=== PATIENT | female | born 1970 | race American Indian/Alaskan Native ===

== ENCOUNTER 2019-05-05 19:13 | Emergency (ER) | payer OTHER ==
[2019-05-05] MEDS ORDERED: NACL 0.9% 1000 ML 1,000 ML IV ONE (19:15)
--- NOTE | 2019-05-05 19:19 | Emergency Department Report ---
ED Palpitations HPI - General Stated Complaint: RAPID HEARTBEAT Time Seen by Provider: 05/05/19 19:18 Source: patient Mode of arrival: Wheelchair Limitations: No Limitations - History of Present Illness Initial Comments: Patient is a 48-year-old female is emergency room with complaints of palpitations and lightheadedness. Patient states that she was working and became lightheaded and felt palpitations and checked her heart rate was 190. Patient is a nurse at this hospital. Patient denies chest pain shortness of breath. States her symptoms are better with rest and worse with exertion. MD Complaint: rapid heart beat, palpitations -: Sudden Context: occured during exertion Associated Symptoms: diaphoresis. denies: chest pain, shortness of breath, syncope, near-syncope, nausea/vomiting, anxiety, cough, parasthesias, feeling of impending doom, muscle cramps Treatments Prior to Arrival: vagal maneuvers - Related Data Allergies Allergy/AdvReac Type Severity Reaction Status Date / Time shellfish derived Allergy Shortness Verified 07/19/17 07:52 of Breath ED Review of Systems ROS: Stated complaint: RAPID HEARTBEAT Other details as noted in HPI Constitutional: denies: chills, fever Eyes: denies: eye pain, eye discharge, vision change ENT: denies: ear pain, throat pain Respiratory: denies: cough, shortness of breath, wheezing Cardiovascular: palpitations. denies: chest pain Endocrine: no symptoms reported Gastrointestinal: denies: abdominal pain, nausea, diarrhea Genitourinary: denies: urgency, dysuria, discharge Musculoskeletal: denies: back pain, joint swelling, arthralgia Skin: denies: rash, lesions Neurological: denies: headache, weakness, paresthesias Psychiatric: denies: anxiety, depression Hematological/Lymphatic: denies: easy bleeding, easy bruising ED Past Medical Hx - Past Medical History Previous Medical History?: Yes Hx Asthma: Yes - Surgical History Past Surgical History?: No - Family History Family history: no significant - Social History Smoking Status: Never Smoker Substance Use Type: None ED Physical Exam - General Limitations: No Limitations General appearance: alert, in no apparent distress - Head Head exam: Present: atraumatic, normocephalic - Eye Eye exam: Present: normal appearance - ENT ENT exam: Present: mucous membranes moist - Neck Neck exam: Present: normal inspection - Respiratory Respiratory exam: Present: normal lung sounds bilaterally. Absent: respiratory distress - Cardiovascular Cardiovascular Exam: Present: regular rate, normal rhythm, tachycardia. Absent: systolic murmur, diastolic murmur, rubs, gallop - GI/Abdominal GI/Abdominal exam: Present: soft, normal bowel sounds - Extremities Exam Extremities exam: Present: normal inspection - Back Exam Back exam: Present: normal inspection - Neurological Exam Neurological exam: Present: alert, oriented X3 - Psychiatric Psychiatric exam: Present: normal affect, normal mood - Skin Skin exam: Present: warm, dry, intact, normal color. Absent: rash ED Course Vital Signs 05/05/19 05/05/19 05/05/19 19:21 19:27 20:16 Temperature 97.9 F Pulse Rate 138 H 78 Respiratory 19 19 Rate Blood Pressure Blood Pressure 171/121 [Left] O2 Sat by Pulse 99 99 100 Oximetry 05/05/19 05/05/19 05/05/19 20:31 20:45 21:10 Temperature Pulse Rate 78 81 92 H Respiratory 15 21 Rate Blood Pressure 148/100 150/109 Blood Pressure [Left] O2 Sat by Pulse 100 98 Oximetry 05/05/19 05/05/19 05/05/19 21:15 21:30 21:47 Temperature Pulse Rate 74 75 89 Respiratory 15 11 L 26 H Rate Blood Pressure 131/102 124/94 124/94 Blood Pressure [Left] O2 Sat by Pulse 99 98 97 Oximetry 05/05/19 05/05/19 05/05/19 22:00 22:15 22:30 Temperature Pulse Rate 73 77 67 Respiratory 12 17 Rate Blood Pressure 139/92 130/94 144/94 Blood Pressure [Left] O2 Sat by Pulse 99 99 98 Oximetry 05/05/19 05/05/19 05/05/19 22:45 23:00 23:15 Temperature Pulse Rate 79 83 71 Respiratory 16 15 17 Rate Blood Pressure 138/103 137/105 128/98 Blood Pressure [Left] O2 Sat by Pulse 96 96 96 Oximetry - Reevaluation(s) Reevaluation #1: Patient states she is feeling better. Patient's current heart rate is 145 05/05/19 19:13 Reevaluation #2: Patient states she is feeling better and her current heart rate is 88. 05/05/19 19:56 Reevaluation #3: Patient's vital signs have improved. Patient states she is feeling better. [place] physician will be consultation 05/05/19 20:42 Reevaluation #4: I discussed all results with patient. I discussed plan of care with patient. Patient agrees with plan of care and transfer. Patient will be transferred to [facility]. 05/05/19 22:45 - Consultations Consultation #1: Discussed case with [place] physician, Dr. Boston. 05/05/19 20:42 Dr. Jurado states that the patient has been accepted to [facility] by Dr. Wright. She will be transported via EMS. 05/05/19 21:02 ED Medical Decision Making - Lab Data Result diagrams: 05/05/19 19:15 05/05/19 19:15 - EKG Data -: EKG Interpreted by Me EKG shows normal: axis, intervals, QRS complexes, ST-T waves Rate: tachycardia - EKG Data Interpretation: other (junctional rhythm noted) - Radiology Data Radiology results: report reviewed, image reviewed interpreted by me: No acute findings on chest x-ray - Medical Decision Making Patient is a 48-year-old female that presents emergency room with complaints of palpitations, heart rate 190 and lightheadedness. Patient heart rate improved with a Valsalva maneuver. Patient given fluids and her heart rate and rhythm returned to normal. Patient's initial EKG shows a junctional tachycardia. Patient's repeat EKG shows a sinus rhythm. Patient's chest x-ray negative. Patient's labs unremarkable. Patient's TSH negative. - Differential Diagnosis SVT. Tachycardia. Critical Care Time: Yes Critical care attestation.: If time is entered above; I have spent that time in minutes in the direct care of this critically ill patient, excluding procedure time. Critical Care Time: 35 minutes ED Disposition Clinical Impression: SVT (supraventricular tachycardia), Tachycardia, Lightheaded, Palpitation Disposition: [id number]/TX-[id number] ANOTHER TYPE HLTHCARE Is pt being admited?: No Does the pt Need Aspirin: No Condition: Critical Forms: Accompanied Note Time of Disposition: 21:03
[2019-05-05 19:40] LABS: Basophils # (Auto) 0.1 K/mm3 (0.0-0.1); Basophils % (Auto) 2.3 % (0.0-1.8); Eosinophils # (Auto) 0.4 K/mm3 (0.0-0.4); Eosinophils % (Auto) 6.4 % (0.0-4.3); Hematocrit 30.8 % (30.3-42.9); Lymphocytes # (Auto) 2.7 K/mm3 (1.2-5.4); Lymphocytes % (Auto) 40.2 % (13.4-35.0); Mean Corpuscular HGB Conc 33 % (30-34); Monocytes # (Auto) 0.5 K/mm3 (0.0-0.8); Monocytes % (Auto) 7.3 % (0.0-7.3); Platelet Count 318 K/mm3 (140-440); Red Blood Count 4.98 M/mm3 (3.65-5.03)
--- NOTE | 2019-05-05 19:49 | XRay Report ---
CHEST 1 VIEW INDICATION: Chest Pain. COMPARISON: None FINDINGS: Support devices: None. Heart: Within normal limits. Lungs/Pleura: Tiny calcified right basilar granuloma. Otherwise clear lungs. Additional findings: None. IMPRESSION: 1. No acute findings. Signer Name: Lorenzo Artis MD Signed: 05/05/2019 7:45 PM Workstation Name: [id number]
[2019-05-05 19:58] LABS: Mean Corpuscular Volume 62 fl (79-97); Red Cell Distribution Width 21.1 % (13.2-15.2)
[2019-05-05 20:05] LABS: BUN/Creatinine Ratio 15; Blood Urea Nitrogen 12 mg/dL (7-17); Calcium 8.9 mg/dL (8.4-10.2); Hemolysis Index 150
[2019-05-05] MEDS ORDERED: NACL 0.9% 1000 ML 1,000 ML ONE (21:44)
[2019-05-05 23:24] VITALS: BP 128/98
== END 2019-05-05 23:46 | disposition other institution (70) ==
LOC: ED 19:13
DX: I47.1 Supraventricular tachycardia (principal); J45.909 Unspecified asthma, uncomplicated; Z91.013 Allergy to seafood
CPT/HCPCS: 36415; 71045; 80048; 84443; 84484; 85025; 93005; 93010; 96360; 99291; J7030